=== PATIENT | female | born 1975 | race Caucasian/White ===

== ENCOUNTER 2016-12-07 19:37 | Emergency (ER) | payer MEDICARE ==
[~2016-12-07] VITALS: Ht 165.1 cm; Wt 72.6 kg
[~2016-12-07 19:37] MED LIST: ADDERALL 30 MG30 MG PO; ADDERALL15 MG PO; AMOXICILLIN500 MG PO; ANAPROX DS550 MG PO; ATIVAN0.5 MG PO; ATIVAN1 MG PO; AUGMENTIN 875 M1 TAB PO; AUGMENTIN 875875 MG PO; BENADRYL25 MG PO; BENTYL10 MG PO; BIAXIN500 MG PO; BUPROPION75 MG PO; CATAFLAM50 MG PO; CIPRO250 MG PO; CIPRO500 MG PO; CLARITIN10 MG PO; COLACE100 MG PO; FLEXERIL5 MG PO; FLONASE 0.05% 121 EA NAS; IBU800 MG PO; LIDEX 0.05% CRE15 GM T; MIRALAX17 GM PO; MOTRIN800 MG PO; NAPROSYN500 MG PO; NKHM; OXYCODONE AND A1 T11 PO; OXYCODONE AND A1 TA3 PO; PREDNISONE20 M1 PO; PRINIVIL20 M1 PO; PROVERA10 MG PO; PROZAC20 MG PO; ROBAXIN500 MG PO; TOPAMAX25 M1 PO; TOPAMAX50 MG PO; TRAMADOL HCL50 MG PO; TYLENOL W/CODEI1 TA2 PO; VIBRAMYCIN100 MG PO; VICODIN 500 MG-1 TAB PO; VOLTAREN50 M1 PO; VYVANSE40 MG PO; ZANAFLEX2 M2 PO; ZESTRIL30 M3 PO; ZITHROMAX Z PA250 MG PO; ZOFRAN ODT4 MG SL; ZOFRAN ODT8 MG PO
[2016-12-07 20:18] VITALS: BP 163/82
[2016-12-07] MEDS ORDERED: ACETAMINOPHEN-O1 TAB PO (20:20)
== END 2016-12-07 21:34 | disposition home or self-care (01) ==
LOC: ED 19:37
DX: S00.33XA Contusion of nose, initial encounter (principal); Z88.2 Allergy status to sulfonamides; Z88.6 Allergy status to analgesic agent; W22.8XXA Striking against or struck by other objects, initial encounter; Y93.89 Activity, other specified; Y92.9 Unspecified place or not applicable; Y99.9 Unspecified external cause status

== ENCOUNTER 2017-03-17 10:56 | Emergency (ER) | payer MEDICARE ==
[~2017-03-17] VITALS: Ht 165.1 cm; Wt 74.8 kg
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
[~2017-03-17 10:56] MED LIST changes: +ACETAMINOPHEN-O1 TAB PO
[2017-03-17 11:41] LABS: BASO # 0.1 10*3/uL (0.0-0.1); BASO % 0.9 % (0.0-1.0); EOS # 0.3 10*3/uL (0.0-0.4); EOS % 3.7 % (1.0-4.0); HEMATOCRIT 43.2 % (37.0-47.0); HEMOGLOBIN 14.7 g/dl (12.0-16.0); LYMPH # 1.6 10*3/uL (1.3-4.4); LYMPH % 20.5 % (27.0-41.0); MEAN CELL VOLUME 93.9 fl (81.0-99.0); MEAN PLATELET VOLUME 9.2 fl (9.6-12.3); MONO # 0.8 10*3/uL (0.1-1.0); MONO % 10.3 % (3.0-9.0); NEUT # 4.9 10*3/uL (2.3-7.9); NEUT % 64.3 % (47.0-73.0); PLATELET COUNT AUTOMATED 301 10*3/uL (130-400); RED CELL DISTRI WIDTH 12.4 % (0-14.5); WHITE BLOOD COUNT 7.6 10*3/uL (4.8-10.8)
[2017-03-17 11:56] LABS: ALBUMIN 3.9 gm/dl (3.1-4.5); CREATININE 1.45 mg/dL (0.55-1.02); MAGNESIUM 2.2 mg/dL (1.5-2.1); POTASSIUM 3.5 mmol/L (3.5-5.1); TOTAL PROTEIN 8.2 gm/dL (6.4-8.2)
[2017-03-17 12:00] LABS: BILIRUBIN NEGATIVE (NEGATIVE); BLOOD NEGATIVE (NEGATIVE); CLARITY SL CLOUDY (CLEAR); COLOR YELLOW (YELLOW); GLUCOSE NEGATIVE (NEGATIVE); KETONE 1+ (NEGATIVE); LEUKO ESTERASE NEGATIVE (NEGATIVE); NITRITE NEGATIVE (NEGATIVE); PH 5.5 (5.0-9.0); SPECIFIC GRAVITY 1.015 (1.005-1.030); UROBILINOGEN 0.2 E.U./dl (0.2-1.0)
[2017-03-17 12:19] LABS: MUCOUS 1+
[2017-03-17 16:43] VITALS: BP 153/87
[2017-03-19] MEDS ORDERED: METHYLPHENIDATE54 M3 PO (10:08)
== END 2017-03-17 19:38 | disposition home or self-care (01) ==
LOC: ED 10:56
PROVIDERS: Emergency Medicine
DX: N13.9 Obstructive and reflux uropathy, unspecified (principal); Z88.2 Allergy status to sulfonamides; Z88.6 Allergy status to analgesic agent; Z91.011 Allergy to milk products; Z79.899 Other long term (current) drug therapy

== ENCOUNTER 2017-03-22 08:00 | Inpatient (IN) | payer MEDICARE ==
[~2017-03-22] VITALS: Ht 152.4 cm; Wt 74.8 kg
[2017-03-22] VITALS (11 sets, daily range): BP systolic 88–172; BP diastolic 60–115
--- NOTE | ~2017-03-22 | DS ---
[place], [place] DISCHARGE SUMMARY NAME: [facility] [id number] UNIT #: [id number] ROOM: 519 DOCTOR: SHRAVAN BLACK MD BIRTHDATE: [birth year] DOS: 03/23/2017 POSTOP DAY #1 ROUNDING NOTE AND DISCHARGE NOTE HOSPITAL COURSE: This 41-year-old white female was admitted on March 22 and underwent a EVA and bilateral salpingectomy with lysis of multiple adhesions including lysis of rectosigmoid colon from the left anterior uterine wall as well as lysing multiple other adhesions. The operative findings were consistent with enlarged fibroid uterus, hematometra and bilateral hematosalpinges. The patient tolerated the surgery well and her EBL was within normal limits. Postop day #1, the patient was alert, ambulatory, just had her catheter removed, had not voided yet, but was feeling much better. Her physical exam including cardiac and pulmonary both normal. Her vital signs are stable. Her abdomen was soft with good bowel sounds. Her incision was intact, clean and dry. There was no significant vaginal discharge or bleeding and her calves and IV site were stable. I reviewed the operative findings, the procedures performed and I reviewed the discharge instructions in detail with the patient and understanding was stated. The patient will increase her diet and activity as tolerated, contact us should she have any issues or questions as outlined in the discharge instructions and will follow up in 6 weeks. We will use a combination of nonsteroidal anti-inflammatory agents and Percocet 5/325 one p.o. q.4-6h. on a p.r.n. basis. The patient did state understanding to the information provided. We will monitor her progress as she voids, resumes p.o. diet and ambulates better and as the day progresses, we anticipate that she will be able to be discharged. The patient stated understanding to this information and I anticipate will be discharged in satisfactory condition later today on 03/23/2017. SHRAVAN BLACK MD CM:DISCHARG [id number] SHRAVAN BLACK MD 03/24/17 0657 interface
--- NOTE | ~2017-03-22 | O ---
[place], [place] OPERATIVE NOTE NAME: ALLAN MOSS UNIT #: [id number] ROOM: [facility] DOCTOR: SHRAVAN BLACK MD BIRTHDATE: [birth year] DOS: 03/22/2017 PREOPERATIVE DIAGNOSES: Enlarged fibroid uterus with suspected hematometra, pelvic pain, acute urinary retention, status post NovaSure and status post x 2. POSTOPERATIVE DIAGNOSES: Enlarged fibroid uterus with suspected hematometra, pelvic pain, acute urinary retention, status post NovaSure and status post x 2 including bilateral hematosalpinges as well left being greater than right and rectosigmoid colon adhesions to the anterior uterus as well as significant bladder adhesions to the anterior uterus from the previous C-sections. OPERATIONS: EVA, bilateral salpingectomy and lysis of adhesions. SURGEON: Shravan Black M.D. and Dr. Davis. ANESTHESIA: General. ESTIMATED BLOOD LOSS: About 200 mL. REPLACEMENTS: IV fluids, Ancef, Ofirmev and Toradol. COMPLICATIONS: There were no complications other than the difficulty of the surgery and the patient's condition to recovery stable. OPERATIVE SUMMARY: The patient was taken to the operating room in supine position, general anesthesia, endotracheal intubation, followed by prep and drape in routine manner. The catheter that she had had over the last several days was removed and a fresh Gutierrez catheter placed. A transverse incision was made in an old transverse scar taking in layers to the intraabdominal cavity. Prominent fibroid was emanating from the left fundal cornual region of the uterus, but there were also numerous adhesions between the rectosigmoid and the left hematosalpinx as well as the rectosigmoid actually being adherent to the anterior uterus. The bladder flap was also well elevated from status post x 2 and the right tube also had a smaller hematosalpinx. The ovaries themselves were normal. At this point, we placed a self-retaining retractor and packed the bowel superiorly and displaced the bladder inferiorly. We then put a corkscrew in the top of the uterus and began to mobilize it by using the LigaSure. We decided to leave the fallopian tubes for the moment and just to free up the uterus. We took several pedicles bilaterally starting at the cornual region and then we carefully dissected off the rectosigmoid colon that was plastered to the left anterior aspect of the uterus as well as we carefully dissected the bladder off it is rather high attachment on the anterior surface of the uterus. Once these were accomplished, we took successive pedicles using the LigaSure down to roughly the lower uterine segment cervical junction and we amputated the body of the uterus, and removed this mass intact. The uterus was markedly enlarged again with the 1 prominent fibroid. We then grasped the cervical stump further continued our bladder displacement inferiorly. We took several additional pedicles using straight Evangelina clamps and then we [place], [place] OPERATIVE NOTE NAME: ALLAN MOSS UNIT #: [id number] ROOM: [facility] DOCTOR: SHRAVAN BLACK MD BIRTHDATE: [birth year] crossclamped using a close cuff technique on the vaginal incision. We placed angle sutures of 0 Vicryl in a transfixing way and then we placed running locking suture of the vaginal cuff with several additional [id number] sutures with excellent hemostasis noted. We irrigated and removed this and placed a pack over this area and then proceeded to remove her right tube, leaving the ovary intact. The left tube had a rather prominent hematosalpinx within it and this was adherent also to the descending colon/rectosigmoid. We lysed these adhesions carefully mobilizing the left tube and the left hematosalpinx and we were able to remove the left tube in its entirety, again preserving the ovary. We achieved good hemostasis bilaterally and actually placed Interceed over remaining ovary to try to prevent further recurrent adhesions. We examined her sidewalls the best we could, particularly on the right noting the ureter to be peristalsing normally and nondistended. The left was somewhat difficult because of the rectosigmoid and the further adhesions that remained there. The cuff itself was intact when we removed the sponge and reexamined it. We reirrigated and removed this and again good hemostasis was noted. Her urine output was clear and adequate. We then removed all sponges and instrumentation and after noting a stable sponge and instrument count closed the parietal peritoneum and the rectus muscles with a continuous running 3-0 Vicryl suture. We closed the fascia with a running intermittent and locking #1 PDS suture. We reapproximated the subcutaneous tissue with 3 interrupted 3-0 Dexon sutures and then we closed the skin with subcuticular 3-0 Monocryl suture. Steri-Strips and dry dressing placed. The patient was cleaned off, awakened, extubated, and transferred to recovery in satisfactory condition. As I said having had clear and adequate urine output, stable sponge and instrument count, good hemostasis, and stable vital signs. SHRAVAN BLACK MD CM:OPRECORD:OPERATIVE NOTE [id number] SHRAVAN BLACK MD 03/22/17 1617 interface
[~2017-03-22 08:00] MED LIST changes: +METHYLPHENIDATE54 M3 PO
--- NOTE | 2017-03-22 13:58 | NUR ---
Time: 1329 A 41 year old FEMALE admitted to under services of DR. WAYNE JOHNSON,SHRAVAN. Pt. arrived via stretcher from [place]. Chief complaint: S/P ABD HYSTERECTOMY. KWAME FLEMING
--- NOTE | 2017-03-22 14:32 | NUR ---
PT MEDICATED WITH TORADOL FOR C/O SURGICAL SITE ABD PAIN.
--- NOTE | 2017-03-22 16:57 | NUR ---
PT MEDICATED PERCOCET FOR SURGICAL SITE ABD PAIN. DRESSING DRY AND INTACT TO ABD SURGICAL SITE. NO ACTIVE BLEEDING.
--- NOTE | 2017-03-22 18:37 | NUR ---
PT HAS BEEN RESTING SINCE BEING MEDICATED WITH PERCOCET AND ATIVAN.
--- NOTE | 2017-03-22 18:56 | NUR ---
PT MEDICATED WITH MOTRIN 600MG PO FOR C/O HEADACHE PAIN.
[2017-03-23] VITALS: BP 174/98
--- NOTE | 2017-03-23 04:59 | NUR ---
PATIENT MEDICATED WITH PERCOCET AT 2133 AND ZOFRAN WITH EFFECTIVE RESULTS NOTED FOR BOTH. RESTING I BED WITH EYES CLOSED AT THIS TIME. NO SIGNS OR SYMPTOMS OF DISTRESS NOTED. CALL LIGHT IN REACH. WILL CONTINUE TO MONITOR.
[2017-03-23 08:00] VITALS: BP 156/98
--- NOTE | 2017-03-23 08:12 | NUR ---
MEDICATED WITH PRN PO PERCOCET FOR LOWER ABDOMINAL PAIN.
--- NOTE | 2017-03-23 08:30 | NUR ---
Sprayer Hand in to talk to patient. Patient states lives at [address] with HER FIANCE AND DAALLYSONTHER. There are LOTS steps in the home. Physician: YOKASTA JACKSON Pharmacy: [facility] [place] Home health services: NONE Patient's level of ADLs: INDEPENDENT Patient has working utilities: YES DME: NONE Follow-up physician's appointment after d/c: PREFERS TO MAKE HER OWN APPT Does patient want to access PORTAL?: Discharge plan HOME. REMBERTO IBRAHIM
--- NOTE | 2017-03-23 09:20 | NUR ---
PRN PO PERCOCET EFFECTIVE, PER PATIENT.
[2017-03-23 12:00] VITALS: BP 152/84
--- NOTE | 2017-03-23 12:21 | NUR ---
MEDICATED WITH PRN PO PERCOCET FOR ABDOMINAL PAIN.
--- NOTE | 2017-03-23 14:00 | NUR ---
PRN PO PERCOCET SOMEWHAT EFFECTIVE, PER PATIENT.
[2017-03-23 16:00] VITALS: BP 131/65
--- NOTE | 2017-03-23 16:27 | NUR ---
PRN PO MOTRIN NOT EFFECTIVE FOR PAIN. MEDICATED AT THIS TIME WITH PRN PO PERCOCET FOR LOWER ABDOMINAL PAIN.
--- NOTE | 2017-03-23 18:04 | NUR ---
Discharge instructions reviewed with patient/family. Patient receptive and verbalizes understanding. Follow-up care arranged. Written instructions given to patient/family. PATIENT DISCHARGED TO [facility], AMBULATORY WITH MOTHER FOR TRANSPORT HOME BY PRIVATE VEHICLE. VANITA GIBSON
== END 2017-03-23 18:04 | disposition home or self-care (01) | DRG 743 ==
LOC: SDC 08:00 → 5E 08:01 → SDC 09:30 → 5E 03-23 18:04 → SDC 03-29 09:30
PROVIDERS: ADMIT Obstetrics & Gynecology
PROC: 0UT70ZZ Resection of Bilateral Fallopian Tubes, Open Approach (ICD-10-PCS; principal; 2017-03-22)
PROC: 0UTC0ZZ Resection of Cervix, Open Approach (ICD-10-PCS; principal; 2017-03-22)
PROC: 0UT90ZZ Resection of Uterus, Open Approach (ICD-10-PCS; principal; 2017-03-22)
DX: D25.9 Leiomyoma of uterus, unspecified (principal); N73.6 Female pelvic peritoneal adhesions (postinfective); N85.7 Hematometra; R33.9 Retention of urine, unspecified

== ENCOUNTER 2017-09-11 15:06 | Emergency (ER) | payer OTHER, MEDICARE ==
[~2017-09-11] VITALS: Ht 165.1 cm; Wt 72.6 kg
[2017-09-11 15:27] LABS: BASO # 0.1 10*3/uL (0.0-0.1); BASO % 1.4 % (0.0-1.0); EOS # 0.8 10*3/uL (0.0-0.4); EOS % 8.3 % (1.0-4.0); HEMATOCRIT 42.7 % (37.0-47.0); HEMOGLOBIN 14.4 g/dl (12.0-16.0); LYMPH # 1.7 10*3/uL (1.3-4.4); LYMPH % 19.2 % (27.0-41.0); MEAN CELL VOLUME 94.5 fl (81.0-99.0); MEAN CORPUSCULAR HGB 31.9 pg (27.0-31.0); MEAN CORPUSCULAR HGB CONC 33.7 g/dl (33.0-37.0); MEAN PLATELET VOLUME 8.7 fl (9.6-12.3); MONO # 0.9 10*3/uL (0.1-1.0); MONO % 9.5 % (3.0-9.0); NEUT # 5.6 10*3/uL (2.3-7.9); NEUT % 61.4 % (47.0-73.0); PLATELET COUNT AUTOMATED 366 10*3/uL (130-400); RED BLOOD COUNT 4.52 10*6/uL (4.10-5.10); WHITE BLOOD COUNT 9.1 10*3/uL (4.8-10.8)
[2017-09-11 15:40] LABS: ACT PARTIAL THROMBO TIME 26.2 SECONDS (20.8-31.5); INTERNATIONAL NORM RATIO 0.9 (2.0-3.5)
[2017-09-11 15:42] LABS: ALKALINE PHOSPHATASE 115 U/L (45-117); BUN 12 mg/dl (7-24); CHLORIDE 99 mmol/L (98-107); CREATININE 0.75 mg/dL (0.55-1.02); POTASSIUM 3.7 mmol/L (3.5-5.1); SGOT/AST 24 IU/L (3-35); SGPT/ALT 27 U/L (12-78); SODIUM 139 mmol/L (136-145); TOTAL PROTEIN 7.8 gm/dL (6.4-8.2)
[2017-09-11 18:45] VITALS: BP 157/102
== END 2017-09-11 19:58 | disposition short-term general hospital (02) ==
LOC: ED 15:06
PROVIDERS: Emergency Medicine
DX: S06.0X0A Concussion without loss of consciousness, initial encounter (principal); S39.012A Strain of muscle, fascia and tendon of lower back, initial encounter; S29.8XXA Other specified injuries of thorax, initial encounter; S39.81XA Other specified injuries of abdomen, initial encounter; M25.511 Pain in right shoulder; M25.512 Pain in left shoulder; M25.552 Pain in left hip; Z98.51 Tubal ligation status; Z98.890 Other specified postprocedural states; Z90.710 Acquired absence of both cervix and uterus; Z79.899 Other long term (current) drug therapy; Z88.5 Allergy status to narcotic agent; Z88.2 Allergy status to sulfonamides; Z91.011 Allergy to milk products; V49.88XA Car occupant (driver) (passenger) injured in other specified transport accidents, initial encounter; Y93.89 Activity, other specified; Y92.413 State road as the place of occurrence of the external cause; Y99.9 Unspecified external cause status

== ENCOUNTER 2018-04-10 12:54 | Emergency (ER) | payer MEDICARE ==
[2018-04-10 13:45] VITALS: BP 192/98
[2018-04-10] MEDS ORDERED: FLONASE ALLERG9.9 ML NAS (13:57)
[2018-04-10] MEDS ORDERED: IBUPROFEN600 MG PO (13:57)
[2018-04-10] MEDS ORDERED: AUGMENTIN 875875 MG PO (13:57)
== END 2018-04-10 14:01 | disposition home or self-care (01) ==
LOC: ED 12:54
DX: J32.9 Chronic sinusitis, unspecified (principal); H60.92 Unspecified otitis externa, left ear; H66.42 Suppurative otitis media, unspecified, left ear; Z91.011 Allergy to milk products; Z88.2 Allergy status to sulfonamides; Z88.6 Allergy status to analgesic agent; Z88.5 Allergy status to narcotic agent; Z79.899 Other long term (current) drug therapy; Z98.51 Tubal ligation status

== ENCOUNTER 2018-07-30 04:30 | Emergency (ER) | payer MEDICARE ==
[~2018-07-30] VITALS: Ht 165.1 cm; Wt 68.0 kg
[~2018-07-30 04:30] MED LIST changes: +FLONASE ALLERG9.9 ML NAS; +IBUPROFEN600 MG PO
[2018-07-30 04:32] VITALS: BP 155/75
[2018-07-30] MEDS ORDERED: Motrin,Rufen800 MG PO (06:08)
== END 2018-07-30 06:14 | disposition home or self-care (01) ==
LOC: ED 04:30
DX: S02.2XXA Fracture of nasal bones, initial encounter for closed fracture (principal); S00.83XA Contusion of other part of head, initial encounter; M47.9 Spondylosis, unspecified; Z88.2 Allergy status to sulfonamides; Z88.6 Allergy status to analgesic agent; Z91.011 Allergy to milk products; Z79.899 Other long term (current) drug therapy; Y08.89XA Assault by other specified means, initial encounter; Y93.89 Activity, other specified; Y92.89 Other specified places as the place of occurrence of the external cause; Y99.8 Other external cause status

== ENCOUNTER 2018-12-25 01:35 | Emergency (ER) | payer MEDICARE ==
[~2018-12-25] VITALS: Ht 152.4 cm; Wt 78.9 kg
[~2018-12-25 01:35] MED LIST changes: +HYDROXYZINE PAM25 M1 PO; +LOSARTAN POTASS50 M1 PO; +Motrin,Rufen800 MG PO
[2018-12-25 01:57] LABS: BASO # 0.1 10*3/uL (0.0-0.1); BASO % 1.4 % (0.0-1.0); EOS # 0.4 10*3/uL (0.0-0.4); EOS % 3.9 % (1.0-4.0); HEMATOCRIT 40.9 % (37.0-47.0); HEMOGLOBIN 13.6 g/dl (12.0-16.0); LYMPH # 3.7 10*3/uL (1.3-4.4); LYMPH % 40.4 % (27.0-41.0); MEAN CELL VOLUME 95.6 fl (81.0-99.0); MEAN CORPUSCULAR HGB 31.8 pg (27.0-31.0); MEAN CORPUSCULAR HGB CONC 33.3 g/dl (33.0-37.0); MEAN PLATELET VOLUME 8.8 fl (9.6-12.3); MONO # 0.8 10*3/uL (0.1-1.0); MONO % 8.8 % (3.0-9.0); NEUT # 4.2 10*3/uL (2.3-7.9); NEUT % 45.2 % (47.0-73.0); PLATELET COUNT AUTOMATED 334 10*3/uL (130-400); RED BLOOD COUNT 4.28 10*6/uL (4.10-5.10); RED CELL DISTRI WIDTH 12.9 % (0-14.5); WHITE BLOOD COUNT 9.2 10*3/uL (4.8-10.8)
[2018-12-25 02:15] LABS: ALBUMIN 3.9 gm/dl (3.1-4.5); ALKALINE PHOSPHATASE 85 U/L (45-117); BUN 17 mg/dl (7-24); CHLORIDE 107 mmol/L (98-107); CREATININE 0.82 mg/dL (0.55-1.02); POTASSIUM 3.9 mmol/L (3.5-5.1); SGOT/AST 21 IU/L (3-35); SGPT/ALT 18 U/L (12-78); SODIUM 142 mmol/L (136-145); TOTAL PROTEIN 7.6 gm/dL (6.4-8.2)
[2018-12-25 02:17] LABS: BILIRUBIN NEGATIVE (NEGATIVE); BLOOD NEGATIVE (NEGATIVE); CLARITY CLEAR (CLEAR); COLOR YELLOW (YELLOW); GLUCOSE NEGATIVE (NEGATIVE); KETONE NEGATIVE (NEGATIVE); LEUKO ESTERASE TRACE (NEGATIVE); NITRITE NEGATIVE (NEGATIVE); PH 5.5 (5.0-9.0); SPECIFIC GRAVITY 1.015 (1.005-1.030); UROBILINOGEN 0.2 E.U./dl (0.2-1.0)
[2018-12-25 02:18] LABS: ACETAMINOPHEN (TYLENOL) < 5.0 ug/ml (10-30)
[2018-12-25 02:27] LABS: URINE AMPHETAMINES < 1000 (1000ng/ml); URINE BARBITURATES < 200 (200ng/ml); URINE BENZODIAZEPINES < 200 (200ng/ml); URINE CANNABINOIDS (THC) < 50 (50ng/ml); URINE COCAINE < 300 (300ng/ml); URINE METHADONE < 300 (300ng/ml); URINE OPIATES < 300 (300ng/ml)
[2018-12-25 02:28] LABS: URINE PHENCYCLIDINE < 25 (25ng/ml)
[2018-12-25 02:32] LABS: RBC 0-2 rbc/hpf (0-2)
[2018-12-25 09:56] VITALS: BP 145/87
== END 2018-12-25 11:13 | disposition home or self-care (01) ==
LOC: ED 01:35
PROVIDERS: Emergency Medicine Emergency Medical Services
DX: S02.2XXA Fracture of nasal bones, initial encounter for closed fracture (principal); S20.212A Contusion of left front wall of thorax, initial encounter; S40.012A Contusion of left shoulder, initial encounter; S50.312A Abrasion of left elbow, initial encounter; F10.129 Alcohol abuse with intoxication, unspecified; G89.29 Other chronic pain; I10 Essential (primary) hypertension; Z91.011 Allergy to milk products; Z88.2 Allergy status to sulfonamides; Z88.6 Allergy status to analgesic agent; Z88.5 Allergy status to narcotic agent; Z79.899 Other long term (current) drug therapy; Z90.710 Acquired absence of both cervix and uterus; Y04.2XXA Assault by strike against or bumped into by another person, initial encounter; Y93.89 Activity, other specified; Y92.89 Other specified places as the place of occurrence of the external cause; Y99.8 Other external cause status

== ENCOUNTER 2019-05-29 14:38 | Emergency (ER) | payer MEDICARE ==
[~2019-05-29] VITALS: Ht 165.1 cm; Wt 74.8 kg
[2019-05-29 14:39] VITALS: BP 208/108
== END 2019-05-29 16:43 | disposition home or self-care (01) ==
LOC: ED 14:38
DX: S86.912A Strain of unspecified muscle(s) and tendon(s) at lower leg level, left leg, initial encounter (principal); Z91.011 Allergy to milk products; Z88.2 Allergy status to sulfonamides; Z88.6 Allergy status to analgesic agent; Z88.5 Allergy status to narcotic agent; Z79.899 Other long term (current) drug therapy; Y04.8XXA Assault by other bodily force, initial encounter; Y93.89 Activity, other specified; Y92.89 Other specified places as the place of occurrence of the external cause; Y99.8 Other external cause status

== ENCOUNTER 2019-08-06 11:57 | Emergency (ER) | payer MEDICARE ==
[~2019-08-06] VITALS: Ht 165.1 cm; Wt 74.8 kg
[2019-08-06 12:10] VITALS: BP 156/103
[2019-08-06] MEDS ORDERED: CEPHALEXIN500 M1 PO (12:31)
[2019-08-06] MEDS ORDERED: TRAMADOL HCL50 MG PO (12:31)
== END 2019-08-06 12:54 | disposition home or self-care (01) ==
LOC: ED 11:57
DX: S61.002A Unspecified open wound of left thumb without damage to nail, initial encounter (principal); Y99.8 Other external cause status; Z88.2 Allergy status to sulfonamides; Z88.5 Allergy status to narcotic agent; Z79.899 Other long term (current) drug therapy; Z90.710 Acquired absence of both cervix and uterus; W26.8XXA Contact with other sharp object(s), not elsewhere classified, initial encounter; Y93.G9 Activity, other involving cooking and grilling; Y92.89 Other specified places as the place of occurrence of the external cause; I10 Essential (primary) hypertension

== ENCOUNTER 2019-12-15 07:51 | Emergency (ER) | payer MEDICARE ==
[~2019-12-15] VITALS: Ht 165.1 cm; Wt 72.6 kg
[~2019-12-15 07:51] MED LIST changes: +CEPHALEXIN500 M1 PO
[2019-12-15 08:44] LABS: BASO # 0.1 10*3/uL (0.0-0.1); BASO % 1.7 % (0.0-1.0); EOS # 0.7 10*3/uL (0.0-0.4); EOS % 10.4 % (1.0-4.0); HEMATOCRIT 45.2 % (37.0-47.0); LYMPH # 2.5 10*3/uL (1.3-4.4); LYMPH % 39.4 % (27.0-41.0); MEAN CELL VOLUME 95.4 fl (81.0-99.0); MEAN CORPUSCULAR HGB 31.4 pg (27.0-31.0); MEAN PLATELET VOLUME 8.6 fl (9.6-12.3); MONO # 0.6 10*3/uL (0.1-1.0); MONO % 8.6 % (3.0-9.0); NEUT # 2.5 10*3/uL (2.3-7.9); NEUT % 39.6 % (47.0-73.0); PLATELET COUNT AUTOMATED 335 10*3/uL (130-400); RED BLOOD COUNT 4.74 10*6/uL (4.10-5.10); RED CELL DISTRI WIDTH 12.7 % (0-14.5); WHITE BLOOD COUNT 6.4 10*3/uL (4.8-10.8)
[2019-12-15 08:48] VITALS: BP 160/90
[2019-12-15 08:50] LABS: INTERNATIONAL NORM RATIO 0.9 (2.0-3.5)
[2019-12-15 08:55] LABS: ALBUMIN 3.8 gm/dl (3.1-4.5); ALKALINE PHOSPHATASE 112 U/L (45-117); BUN 10 mg/dl (7-24); CHLORIDE 105 mmol/L (98-107); CREATININE 0.65 mg/dL (0.55-1.02); POTASSIUM 3.7 mmol/L (3.5-5.1); SGOT/AST 24 IU/L (3-35); SGPT/ALT 32 U/L (12-78); SODIUM 139 mmol/L (136-145)
[2019-12-15 08:56] LABS: B-hCG (QUALITATIVE) NEGATIVE (NEGATIVE)
[2019-12-15 08:57] LABS: TROPONIN I < 0.015 ng/ml (<0.045)
[2019-12-15] MEDS ORDERED: DOXYCYCLINE100 M3 PO (09:27)
[2019-12-15] MEDS ORDERED: PROAIR HFA8.5 GM INH (09:28)
== END 2019-12-15 09:45 | disposition home or self-care (01) ==
LOC: ED 07:51
PROVIDERS: Internal Medicine
DX: J18.9 Pneumonia, unspecified organism (principal); I10 Essential (primary) hypertension; Z20.828 Contact with and (suspected) exposure to other viral communicable diseases; Z88.2 Allergy status to sulfonamides; Z88.6 Allergy status to analgesic agent; Z79.899 Other long term (current) drug therapy

== ENCOUNTER → 2020-05-24 | Outpatient (CLI) | payer MEDICARE ==
[~2020-05-24] MED LIST changes: +DOXYCYCLINE100 M3 PO; +PROAIR HFA8.5 GM INH
== END | disposition home or self-care (01) ==
LOC: COVID19 10:10
PROVIDERS: ATTEND Family Medicine
DX: U07.1 COVID-19 (principal); Z20.828 Contact with and (suspected) exposure to other viral communicable diseases

== ENCOUNTER → 2021-07-14 | Outpatient (CLI) | payer MEDICARE | END | disposition home or self-care (01) | LOC: COVID19 15:18 | PROVIDERS: ATTEND Internal Medicine | DX: Z20.822 Contact with and (suspected) exposure to COVID-19 (principal) ==

== ENCOUNTER → 2021-09-15 | Outpatient (CLI) | payer MEDICARE | END | disposition home or self-care (01) | LOC: MAMMO 13:00 | PROVIDERS: ATTEND Family Medicine | DX: Z12.31 Encounter for screening mammogram for malignant neoplasm of breast (principal) ==

== ENCOUNTER → 2021-10-01 | Outpatient (CLI) | payer MEDICARE | END | disposition home or self-care (01) | LOC: MAMMO 07:53 | PROVIDERS: ATTEND Family Medicine | DX: R92.8 Other abnormal and inconclusive findings on diagnostic imaging of breast (principal); Z80.3 Family history of malignant neoplasm of breast; N64.9 Disorder of breast, unspecified ==

== ENCOUNTER → 2022-09-03 | Outpatient (CLI) | payer OTHER, MEDICAID ==
[~2022-09-03] MED LIST changes: +CETIRIZINE10 MG PO; +FLUOXETINE HYDR20 M1 PO; +FLUOXETINE40 MG PO; +HYDROCHLOROTH12.5 M3 PO; +LOPERAMIDE HCL2 MG PO; +MAGNESIUM400 M1 PO; +ONDANSETRON HYDR4 M1 PO; +POTASSIUM CHLO20 ME4 PO; +POTASSIUM PO
== END | disposition home or self-care (01) ==
LOC: RAD 16:52
PROVIDERS: ATTEND Student in an Organized Health Care Education/Training Program
DX: R06.00 Dyspnea, unspecified (principal); M53.84 Other specified dorsopathies, thoracic region

== ENCOUNTER → 2023-08-24 | Outpatient (CLI) | payer OTHER | END | disposition home or self-care (01) | LOC: RAD 16:24 | PROVIDERS: ATTEND Student in an Organized Health Care Education/Training Program | DX: M17.12 Unilateral primary osteoarthritis, left knee (principal) ==

== ENCOUNTER 2025-05-10 13:49 | Inpatient (IN) | payer OTHER ==
[2025-05-10] VITALS (7 sets, daily range): BP systolic 159–211; BP diastolic 85–130
[~2025-05-10] VITALS: Ht 165.1 cm; Wt 74.1 kg
[2025-05-10] MEDS ORDERED: Meloxicam 15 MG TAB PO ONE (14:55)
[2025-05-10] MEDS ORDERED: METHOCARBAMOL 750 MG TAB PO ONE (14:55)
[2025-05-10] MEDS ORDERED: Acetaminophen/Oxycodone 5 MG/325 MG TABLET PO ONE (14:55)
[2025-05-10 15:32] LABS: BILIRUBIN Negative (Negative); BLOOD Negative (Negative); CLARITY Cloudy (Clear); COLOR Yellow (Yellow); KETONE Trace (Negative); LEUKO ESTERASE Negative (Negative); NITRITE Negative (Negative); PH 7.0 (4.5-8.0); SPECIFIC GRAVITY 1.025 (1.001-1.030); UROBILINOGEN 1.0 E.U./dl (0.0-1.0)
[2025-05-10 15:38] LABS: BUN 7 mg/dl (9-23); ETHYL ALCOHOL 86.9 mg/dl (<3); MEAN CELL VOLUME 80.9 fl (81.0-99.0); MEAN CORPUSCULAR HGB 23.9 pg (27.0-31.0); MEAN PLATELET VOLUME 9.0 fl (9.6-12.3); NUCLEATED RED BLOOD CELL 0.0 % (0.0-0.0); NUCLEATED RED BLOOD CELL 0.0 10*3/uL (0.0-0.0); PLATELET COUNT AUTOMATED 392 10*3/uL (130-400); SGPT/ALT 46 U/L (5-49)
[2025-05-10 15:40] LABS: BACTERIA 2+
[2025-05-10 15:42] LABS: MANUAL DIFF REFLEX YES
[2025-05-10 15:45] LABS: BASOPHILS 3 % (0-1)
[2025-05-10 15:47] LABS: PLATELET SUFFICIENCY NORMAL (NORMAL); STOMATOCYTE FEW
[2025-05-10] MEDS ORDERED: hydrALAZINE hydrochloride 20 MG/ML VIAL IV ONE ×2 (16:20→18:25)
[2025-05-10] MEDS ORDERED: diazePAM 10 MG/2 ML SYR IV ONE (17:25)
[2025-05-10] MEDS ORDERED: Promethazine Hydrochloride 25 MG/ML VIAL IV ONE (19:05)
[2025-05-10] MEDS ORDERED: OMEPRAZOLE10 MG PO (21:12)
[2025-05-10] MEDS ORDERED: ACETAMINOPHEN 325 MG TAB PO PRN (21:25)
[2025-05-10] MEDS ORDERED: BISACODYL 5 MG TAB PO PRN (21:25)
[2025-05-10] MEDS ORDERED: BISACODYL 10 MG SUPP R PRN (21:25)
[2025-05-10] MEDS ORDERED: ACETAMINOPHEN 650 MG SUPP R PRN (21:25)
[2025-05-10] MEDS ORDERED: Ondansetron Hydrochloride 4 MG/2 ML VIAL IV PRN (21:25)
[2025-05-10] MEDS ORDERED: MELATONIN10 M2 PO (22:13)
[2025-05-10] MEDS ORDERED: Acetaminophen/Oxycodone 5 MG/325 MG TABLET PO PRN (22:15)
[2025-05-10] MEDS ORDERED: Water, Sterile 10 ML VIAL IV PRN (22:20)
[2025-05-10] MEDS ORDERED: MAGNESIUM SULFATE 100 ML IV ONE (22:20)
[2025-05-10] MEDS ORDERED: FOLIC ACID 1 MG TAB PO ONE (22:20)
[2025-05-10] MEDS ORDERED: SUCRALFATE 1 GM TAB PO SCH (22:20)
[2025-05-10] MEDS ORDERED: LORazepam 2 MG/ML VIAL IV PRN (22:20)
[2025-05-10] MEDS ORDERED: Dicyclomine Hydrochloride 20 MG TAB PO PRN (22:20)
[2025-05-10] MEDS ORDERED: METHOCARBAMOL 750 MG TAB PO PRN (22:20)
[2025-05-10] MEDS ORDERED: hydrOXYzine 50 MG CAP PO PRN (22:20)
[2025-05-11] VITALS: BP 171/105
[2025-05-11] MEDS ORDERED: LORazepam 1 MG TAB PO SCH
[2025-05-11 06:11] LABS: MEAN CELL VOLUME 81.7 fl (81.0-99.0); MEAN CORPUSCULAR HGB 24.0 pg (27.0-31.0); MEAN PLATELET VOLUME 9.0 fl (9.6-12.3); NUCLEATED RED BLOOD CELL 0.0 % (0.0-0.0); NUCLEATED RED BLOOD CELL 0.0 10*3/uL (0.0-0.0); PLATELET COUNT AUTOMATED 323 10*3/uL (130-400)
[2025-05-11 06:20] LABS: BUN 10 mg/dl (9-23); FREE T4 1.35 ng/dl (0.89-1.76); LDL CHOLESTEROL 130 mg/dL (9-159); SGPT/ALT 33 U/L (5-49)
[2025-05-11 06:22] LABS: ACT PARTIAL THROMBO TIME 25.8 SECONDS (20.0-32.1)
[2025-05-11] MEDS ORDERED: Labetalol Hydrochloride 20 MG/4 ML SYR IV ONE (06:55)
[2025-05-11 07:13] LABS: MANUAL DIFF REFLEX YES
[2025-05-11 07:17] LABS: BASOPHILS 1 % (0-1); PLATELET SUFFICIENCY NORMAL (NORMAL)
[2025-05-11 07:19] LABS: STOMATOCYTE FEW
[2025-05-11 08:00] VITALS: BP 175/98
[2025-05-11 09:03] LABS: VITAMIN D, 25-HYDROXY 40.3 ng/mL (30-100)
[2025-05-11] MEDS ORDERED: POTASSIUM CHLORIDE 20 MEQ TAB PO ONE (09:15)
[2025-05-11] MEDS ORDERED: MULTIVITAMIN 1 TAB TAB PO SCH (10:00)
[2025-05-11 12:00] VITALS: BP 188/110
[2025-05-11 14:30] VITALS: BP 174/98
[2025-05-11] MEDS ORDERED: SODIUM CHLORIDE 0.9% 1,000 ML IV ONE (14:45)
[2025-05-11] MEDS ORDERED: diphenhydrAMINE hydrochloride 50 MG/ML VIAL IV ONE (14:45)
[2025-05-11] MEDS ORDERED: MAGNESIUM SULFATE 50 ML IV ONE (14:50)
[2025-05-11 16:00] VITALS: BP 164/99
[2025-05-11 20:00] VITALS: BP 157/97
[2025-05-12] VITALS: BP 145/89
[2025-05-12] MEDS ORDERED: LORazepam 1 MG TAB PO PRN
[2025-05-12] MEDS ORDERED: LORazepam 1 MG TAB PO SCH (02:00)
[2025-05-12] MEDS ORDERED: Benzocaine/Menthol 1 LOZ LOZENGE PO PRN (04:50)
[2025-05-12 06:55] LABS: MEAN CELL VOLUME 83.7 fl (81.0-99.0); MEAN CORPUSCULAR HGB 24.2 pg (27.0-31.0); MEAN PLATELET VOLUME 9.5 fl (9.6-12.3); NUCLEATED RED BLOOD CELL 0.0 % (0.0-0.0); NUCLEATED RED BLOOD CELL 0.0 10*3/uL (0.0-0.0); PLATELET COUNT AUTOMATED 244 10*3/uL (130-400)
[2025-05-12 06:59] LABS: MANUAL DIFF REFLEX YES
[2025-05-12 07:12] LABS: BUN 12 mg/dl (9-23)
[2025-05-12 07:23] LABS: PLATELET SUFFICIENCY NORMAL (NORMAL)
[2025-05-12 07:24] LABS: STOMATOCYTE FEW
[2025-05-12 08:00] VITALS: BP 192/112
[2025-05-12 12:00] VITALS: BP 157/86
[2025-05-12] MEDS ORDERED: Cyclobenzaprine Hydrochlorid 10 MG TAB PO SCH ×2 (14:05→22:00)
[2025-05-12] MEDS ORDERED: Acetaminophen/Oxycodone Hydr 7.5 MG/325 MG TABLET PO PRN (14:20)
[2025-05-12 16:00] VITALS: BP 177/114
[2025-05-12 20:00] VITALS: BP 156/91
[2025-05-13 00:50] VITALS: BP 158/106
[2025-05-13] MEDS ORDERED: hydroCHLOROthiazide 25 MG TAB PO ONE (01:00)
[2025-05-13 08:00] VITALS: BP 189/107
[2025-05-13] MEDS ORDERED: PERCOCET 7.5-31 EACH PO (11:28)
[2025-05-13] MEDS ORDERED: HYDR12.5C PO (11:28)
[2025-05-13] MEDS ORDERED: CARAFATE1 GM PO (11:28)
[2025-05-13] MEDS ORDERED: CYCLOBENZAPRINE10 MG PO (11:28)
[2025-05-13] MEDS ORDERED: OMEPRAZOLE40 MG PO (11:28)
[2025-05-13 12:00] VITALS: BP 196/100
[2025-05-13] MEDS ORDERED: HYDR25T PO (12:30)
== END 2025-05-13 14:50 | disposition home or self-care (01) | DRG 563 ==
LOC: ED 13:49 → EDHOLD 20:49 → 5E 21:27
PROVIDERS: Nurse Practitioner Family; Student in an Organized Health Care Education/Training Program; ADMIT Internal Medicine; ATTEND Internal Medicine
DX: S93.491A Sprain of other ligament of right ankle, initial encounter (principal); N39.0 Urinary tract infection, site not specified; F10.139 Alcohol abuse with withdrawal, unspecified; I16.0 Hypertensive urgency; D50.9 Iron deficiency anemia, unspecified; I10 Essential (primary) hypertension; G89.29 Other chronic pain; R74.01 Elevation of levels of liver transaminase levels; F41.1 Generalized anxiety disorder; X58.XXXA Exposure to other specified factors, initial encounter; F32.9 Major depressive disorder, single episode, unspecified; Z88.5 Allergy status to narcotic agent; Z88.2 Allergy status to sulfonamides; Z88.8 Allergy status to other drugs, medicaments and biological substances; Z90.710 Acquired absence of both cervix and uterus; Z80.8 Family history of malignant neoplasm of other organs or systems; Y93.89 Activity, other specified; Y92.89 Other specified places as the place of occurrence of the external cause; Y99.8 Other external cause status